=== PATIENT | male | born 1955 | race Caucasian/White ===

== ENCOUNTER → 2024-01-17 | Outpatient (REF) | payer OTHER, SELFPAY | LOC: DHSLP | PROVIDERS: ATTENDING PHYSICIAN Internal Medicine; FAMILY PHYSICIAN Family Medicine | DX: G47.33 Obstructive sleep apnea (adult) (pediatric) (principal) | CPT/HCPCS: 95800 ==

== ENCOUNTER 2024-04-07 16:39 | Emergency (ER) | payer OTHER, SELFPAY ==
[2024-04-07 16:51] VITALS: BP 139/78
--- NOTE | 2024-04-07 18:25 | W.PN.UPDATE ---
Update Note
Progress Note Update
Called to see patient for for infection. Patient had transient food impaction earlier today with chicken and broccoli, though did spontaneously passed. Now he has some minimal discomfort though tolerated clears without any difficulty. He is okay
to MO from GI standpoint, will send message to Dr. Siu to see if able to move up planned EGD later this month. We discussed dietary modifications and acid suppression for now.
--- NOTE | 2024-04-07 21:44 | ED.GENMED ---
History of Present Illness
General
Chief Complaint: Swallowing Problem
Source: patient
Exam Limitations: none
Time Seen by Provider: 04/07/24 17:44
Nursing documentation reviewed up to this point in time: agreed with
History of Present Illness
History of Present Illness:
68-year-old male with history of reflux presents for evaluation after sensation of food stuck in his throat. Patient was eating dinner tonight which consisted of chicken and broccoli. He says that the chicken went down fine but he ate a large
piece of broccoli and felt food got stuck in the bottom of his throat. He says he was unable to swallow saliva or water and so he called the GI office who recommended he come to the emergency room. He states he had a similar episode in the past
requiring endoscopy. Since arrival in the ER he says that he feels that the food bolus has passed�he says that he tried to self-induced vomiting and ultimately symptoms resolved. He has no other complaints.
Past History
Past History
ED Past Medical History: None
ED Past Surgical History: None
Social History
Tobacco: Non-smoker
Review of Systems
Review of Systems
All Other Systems: ROS reviewed and negative except as documented in HPI and ROS
ABD/GI: Reports vomiting and other (Dysphagia)
Phy Exam
Physical Exam
Physical Exam:
General: Awake, alert, oriented x3; no acute distress
Head: Normocephalic, atraumatic
Eyes: Conjunctiva normal
Throat: Airway intact, handling secretions, patent oropharynx with no foreign body noted in the upper airway
Neck: Trachea midline
Lungs: Clear to auscultation bilaterally, no wheezing, rales, rhonchi
Heart: Regular rate and rhythm, no murmurs, gallops, or rubs
Abd: Soft, non distended, nontender
Neuro: No gross deficits
Skin: no rash
Extremities: Warm and well-perfused
Scores
Heart Failure Risk
Heart Failure Risk Score: Not Applicable
Heart Score for Chest Pain Patients
STEMI patient?: Not applicable
Withdrawal Assessment of Alcohol
Withdrawal Assessment Completed?: Not applicable
Course
Orders/Labs/Results
Orders:
Orders
04/07/24 17:45
GASTROINTESTINAL CONSULT Urgent
Consulting Provider: Kris Deleon
Was physician already notified: Yes
Vital Signs
Initial and Last Documented VS:
Initial Vital Signs
Temp Pulse Resp BP Pulse Ox
36.9 C 82 18 139/78 94
04/07/24 16:51 04/07/24 16:51 04/07/24 16:51 04/07/24 16:51 04/07/24 16:51
Last Documented Vital Signs
Temp Pulse Resp BP Pulse Ox
36.9 C 82 18 139/78 94
04/07/24 16:51 04/07/24 16:51 04/07/24 16:51 04/07/24 16:51 04/07/24 16:51
MDM/Problems Addressed
Differential Diagnosis Includes:
Esophageal food bolus
MDM/Problems Addressed:
68-year-old male presents with esophageal food bolus�initially felt food stuck in his esophagus and had difficulty swallowing but by the time he arrived here his symptoms resolved. GI was called by patient and actually waiting for him on arrival
here in the ER. They evaluated at bedside including bedside swallowing assessment�plan to discharge and will perform outpatient endoscopy. Patient comfortable with this plan. All questions answered.
Chronic conditions affecting care:
GERD
*Pulse Oximetry
Patient hypoxic: no
*Critical Care Note
Total Time (30-74mins, 75-104mins- exclusive of procedures): Not Applicable
Data Reviewed
Review of Other/Old Records Reveals: Records
Source: patient
Patient Management
Discussion with other providers: [employer] Registrar (Discussed with GI)
ED Attending Note
-
Portions of this chart may have been created with voice recognition software.� Occasional wrong word or��sound alike� substitutions may have occurred due to the inherent limitations of voice recognition software.
Discharge Plan
Departure
Patient Disposition: Home (Routine Discharge)
Date of Disposition: 04/07/24
Time of Disposition: 19:37
Patient with high blood pressure during this ER visit?: No
Discharge Problem:
Food impaction of esophagus
Instructions: Food Obstruction
Prescriptions:
No Action
No Current Medications
0
Referrals:
Kj Castillo DO [Family Provider] - Call in 1-3 days for appt
Activity Restrictions/Additional Instructions:
Thank you for visiting the Emergency Department at [facility].
1. Please schedule a follow up appointment as directed. Call first thing tomorrow morning to make an appointment.
2. If indicated, please take your medications as instructed and indicated on discharge paperwork.
3. If any of your symptoms do not improve, or persist, or become more severe within 6-12 hours, please return to the emergency department for further care.
4. Please return to the emergency department if you develop a headache, neck pain/stiffness, fever greater than 100.4F, chest pain, shortness of breath, persistent nausea, vomiting, slurred speech, difficulty walking, numbness/tingling, weakness,
signs of infection or any other symptoms that are worrisome to you.
Please call [phone] if you have any questions.
Interventions
Interventions:
*Risk Screen - Suicide Last Done: 04/07/24 16:51
*General Assessment Last Done: 04/07/24 16:51
*Neglect/Abuse Screening Last Done: 04/07/24 16:51
ED- Fall Risk Assessment Last Done: 04/07/24 19:38
*ED COVID-19 Vaccine History Last Done: 04/07/24 18:56
*Nursing Disposition Last Done: 04/07/24 19:38
ED-EENT Assessment Last Done: 04/07/24 18:54
EK-Ozqeps-Sobpnkxyqf Assessment Last Done: 04/07/24 18:54
ED- Pulmonary Assessment Last Done: 04/07/24 18:54
ED- Neurological Assessment Last Done: 04/07/24 18:54
ED Swallowing Screen Last Done: 04/07/24 18:54
Discharge Date and Time
Discharge Date/Time: 04/07/24 19:38
Print Language: FRENCH
== END 2024-04-07 19:38 | disposition home or self-care (01) ==
LOC: EMR 16:39
PROVIDERS: CONSULT PHYSICIAN Internal Medicine Gastroenterology; EMERGENCY PHYSICIAN Emergency Medicine; FAMILY PHYSICIAN Family Medicine
DX: T18.128A Food in esophagus causing other injury, initial encounter (principal); R11.10 Vomiting, unspecified; W44.F3XA Food entering into or through a natural orifice, initial encounter; K21.9 Gastro-esophageal reflux disease without esophagitis
CPT/HCPCS: 99282

== ENCOUNTER → 2024-04-23 06:28 | Day surgery (SDC) | payer OTHER, SELFPAY | LOC: GI 06:28 | PROVIDERS: ATTENDING PHYSICIAN Specialist | DX: R13.10 Dysphagia, unspecified (principal); K22.2 Esophageal obstruction; K31.7 Polyp of stomach and duodenum; K22.89 Other specified disease of esophagus; K20.90 Esophagitis, unspecified without bleeding | CPT/HCPCS: 43249; 43239; 88305; 88342 ==

== ENCOUNTER → 2024-09-14 16:19 | Outpatient (REF) | payer OTHER, SELFPAY | LOC: DHSLP 16:19 | PROVIDERS: ATTENDING PHYSICIAN Internal Medicine; FAMILY PHYSICIAN Family Medicine | DX: G47.33 Obstructive sleep apnea (adult) (pediatric) (principal); R06.83 Snoring; Z82.0 Family history of epilepsy and other diseases of the nervous system; Z87.891 Personal history of nicotine dependence; R03.0 Elevated blood-pressure reading, without diagnosis of hypertension; E66.9 Obesity, unspecified | CPT/HCPCS: 95806 ==